=== PATIENT | female | born 1965 | race Caucasian/White ===

== ENCOUNTER 2022-09-13 15:08 | Emergency (ER) | payer OTHER ==
[2022-09-13 15:18] VITALS: BP 132/71; PULSE 74; RESP 20; TEMP 97.8; BMI 25.7
[2022-09-13] MEDS ORDERED: ALBUTEROL SO4 2.5/IPRATROPIUM 0.5 INH SOL 3 ML VIAL.NEB. NEB ONE ×2 (15:38→15:41)
[2022-09-13] MEDS ORDERED: IBUPROFEN 600 MG TABLET (FP) PO ONE ×2 (15:38→15:42)
[2022-09-13] MEDS ORDERED: LORATADINE 10 MG TABLET PO ONE (15:38)
[2022-09-13] MEDS ORDERED: LORATADINE 10 MG TABLET ONE (15:41)
== END 2022-09-13 16:55 | disposition home or self-care (01) ==
LOC: JERFT 15:08
PROC: 3E0F7GC Introduction of Other Therapeutic Substance into Respiratory Tract, Via Natural or Artificial Opening (ICD-10-PCS; principal; 2022-09-13)
DX: R50.9 Fever, unspecified (principal); R05.9 Cough, unspecified; R09.81 Nasal congestion; J98.01 Acute bronchospasm; T78.40XA Allergy, unspecified, initial encounter; Z20.822 Contact with and (suspected) exposure to COVID-19
CPT/HCPCS: 0241U-QW; 71046-TC-FY; 99284-25

== ENCOUNTER 2023-01-24 15:17 | Emergency (ER) | payer OTHER ==
[2023-01-24 15:26] VITALS: BP 133/61; PULSE 73; RESP 18; TEMP 97.7; BMI 27.8
[2023-01-24] MEDS ORDERED: ACETAMINOPHEN 1000 MG/100 ML BAG IVPB ONE (16:49)
[2023-01-24] MEDS ORDERED: SODIUM CHLORIDE 0.9% 500 ML INFUS.BAG IV ONE (16:50)
[2023-01-24] MEDS ORDERED: ALBUTEROL SO4 0.083% IH SOL 2.5 MG/3 ML VIAL.NEB. NEB ONE ×2 (17:17→17:38)
[2023-01-24] MEDS ORDERED: ACETAMINOPHEN INJECTION 100 ML IVPB ONE (17:17)
[2023-01-24] MEDS: ALBUTEROL SO4 0.083% IH SOL 2.5 MG/3 ML VIAL.NEB. NEB SCH ×3 (17:28→18:45)
[2023-01-24 17:52] LABS: BASO % 1.6 % (0-2.0); EOS % 0.9 % (0-4.5); HEMATOCRIT 39.4 % (32.4-45.2); HEMOGLOBIN 13.6 GM/dL (10.7-15.3); LYMPH % 49.3 % (8-40); MCH 30.6 pg (25.7-33.7); MCHC 34.6 g/dl (32.0-36.0); MEAN CELL VOLUME 88.4 fl (80-96); MEAN PLT VOLUME 7.2 fl (7.5-11.1); MONO % 10.6 % (3.8-10.2); NEUT % 37.6 % (42.8-82.8); PLATELET COUNT 299 10^3/uL (134-434); RBC 4.46 M/mm3 (3.60-5.2); RDW 13.2 % (11.6-15.6); WHITE BLOOD COUNT 4.8 K/mm3 (4.0-10.0)
[2023-01-24 17:56] LABS: CALCIUM 8.5 mg/dL (8.5-10.1)
[2023-01-24 17:57] LABS: ALBUMIN 3.6 g/dl (3.4-5.0); BLOOD UREA NITROGEN 11.5 mg/dL (7-18)
[2023-01-24 18:00] LABS: CREATININE 0.6 mg/dL (0.55-1.3)
[2023-01-24 18:01] LABS: BILIRUBIN,TOTAL 0.2 mg/dL (0.2-1); TOT PROT 7.3 g/dl (6.4-8.2)
[2023-01-24 19:10] LABS: THROAT:GRP A STREP NOT DETECTED (NOTDETECTED)
== END 2023-01-24 20:30 | disposition home or self-care (01) ==
LOC: JERFT 15:17 → JER 15:17 → JERFT 20:30
PROC: 3E033NZ Introduction of Analgesics, Hypnotics, Sedatives into Peripheral Vein, Percutaneous Approach (ICD-10-PCS; principal; 2023-01-24)
PROC: 3E0F7GC Introduction of Other Therapeutic Substance into Respiratory Tract, Via Natural or Artificial Opening (ICD-10-PCS; 2023-01-24)
DX: R05.9 Cough, unspecified (principal); R06.2 Wheezing; J02.9 Acute pharyngitis, unspecified; R11.0 Nausea; R19.7 Diarrhea, unspecified; U07.1 COVID-19; M94.0 Chondrocostal junction syndrome [Tietze]; J20.8 Acute bronchitis due to other specified organisms
CPT/HCPCS: 0241U-QW; 36415; 71046-TC-FY; 80053; 84484; 85025; 87651; 93005; 93010; 99285-25

== ENCOUNTER 2023-03-04 16:31 | Emergency (ER) | payer BC, OTHER ==
[2023-03-04 16:39] VITALS: BP 129/57; PULSE 79; RESP 18; TEMP 98.3; BMI 27.6
[2023-03-04] MEDS ORDERED: SODIUM CHLORIDE 0.9% 500 ML INFUS.BAG IV ONE (16:46)
[2023-03-04] MEDS ORDERED: ACETAMINOPHEN 1000 MG/100 ML BAG IVPB ONE (16:46)
[2023-03-04] MEDS ORDERED: ACETAMINOPHEN INJECTION 100 ML IVPB ONE (17:04)
[2023-03-04 17:37] LABS: HEMATOCRIT 40.2 % (32.4-45.2); MCH 30.9 pg (25.7-33.7); MCHC 34.8 g/dl (32.0-36.0); MEAN CELL VOLUME 88.7 fl (80-96); MEAN PLT VOLUME 7.6 fl (7.5-11.1); PLATELET COUNT 309 10^3/uL (134-434); RBC 4.53 M/mm3 (3.60-5.2); RDW 13.4 % (11.6-15.6); WHITE BLOOD COUNT 7.5 K/mm3 (4.0-10.0)
[2023-03-04 18:08] LABS: POTASSIUM 4.1 mmol/L (3.5-5.1)
[2023-03-04 18:09] LABS: CALCIUM 8.9 mg/dL (8.5-10.1)
[2023-03-04 18:10] LABS: ALBUMIN 3.7 g/dl (3.4-5.0); BLOOD UREA NITROGEN 17.1 mg/dL (7-18); MAGNESIUM 1.9 mg/dL (1.8-2.4)
[2023-03-04 18:14] LABS: CREATININE 0.6 mg/dL (0.55-1.3)
[2023-03-04 18:15] LABS: BILIRUBIN,TOTAL 0.3 mg/dL (0.2-1); TOT PROT 7.3 g/dl (6.4-8.2)
[2023-03-04 18:58] LABS: EPI CELLS 4 /uL (0-25.1); HYALINE CASTS 0 /uL (0-3.1); URINE APPEARANCE CLEAR; URINE BACTERIA 51 /uL (0-1359); URINE BILIRUBIN NEGATIVE (NEGATIVE); URINE COLOR YELLOW; URINE GLUCOSE (UA) NEGATIVE (NEGATIVE); URINE KETONE NEGATIVE (NEGATIVE); URINE LEUK ESTERASE NEGATIVE (NEGATIVE); URINE NITRITE NEGATIVE (NEGATIVE); URINE PROTEIN NEGATIVE (NEGATIVE); URINE RBC 19 /uL (0-23.9); URINE UROBILINOGEN 0.2 mg/dL (0.2-1.0); URINE WBC 11 /uL (0-25.8)
[2023-03-04] MEDS ORDERED: KETOROLAC TROMETHAMINE 30 MG/1 ML VIAL IVPUSH ONE (19:15)
[2023-03-04] MEDS ORDERED: KETOROLAC TROMETHAMINE 30 MG/1 ML VIAL ONE (19:57)
== END 2023-03-04 20:25 | disposition home or self-care (01) ==
LOC: JER 16:31
PROC: 3E033NZ Introduction of Analgesics, Hypnotics, Sedatives into Peripheral Vein, Percutaneous Approach (ICD-10-PCS; principal; 2023-03-04)
PROC: 3E0333Z Introduction of Anti-inflammatory into Peripheral Vein, Percutaneous Approach (ICD-10-PCS; 2023-03-04)
DX: R10.9 Unspecified abdominal pain (principal); R30.0 Dysuria; R11.10 Vomiting, unspecified
CPT/HCPCS: 36415; 74176-TC; 80053; 81003; 83735; 85027; 87086; 99284-25

== ENCOUNTER 2023-12-31 19:22 | Emergency (ER) | payer BC ==
[2023-12-31 19:34] VITALS: BP 128/79; PULSE 72; RESP 18; TEMP 98.6; BMI 28.3
[2023-12-31 20:57] LABS: HEMATOCRIT 38.3 % (32.4-45.2); MCH 30.5 pg (25.7-33.7); MEAN CELL VOLUME 89.8 fl (80-96); PLATELET COUNT 289 10^3/uL (134-434); RBC 4.27 M/mm3 (3.60-5.2); RDW 13.5 % (11.6-15.6); WHITE BLOOD COUNT 6.1 K/mm3 (4.0-10.0)
[2023-12-31 21:09] LABS: POTASSIUM 3.9 mmol/L (3.5-5.1)
[2023-12-31 21:12] LABS: CALCIUM 8.8 mg/dL (8.5-10.1)
[2023-12-31] MEDS ORDERED: ACETAMINOPHEN INJECTION 100 ML ONE (21:12)
[2023-12-31] MEDS ORDERED: METHOCARBAMOL 500 MG TABLET ONE (21:12)
[2023-12-31 21:13] LABS: ALBUMIN 3.6 g/dl (3.4-5.0); BLOOD UREA NITROGEN 11.4 mg/dL (7-18)
[2023-12-31] MEDS ORDERED: ONDANSETRON 4 MG/2 ML VIAL ONE (21:13)
[2023-12-31] MEDS ORDERED: LIDOCAINE 5% TOPICAL PATCH ONE (21:13)
[2023-12-31 21:16] LABS: CREATININE 0.6 mg/dL (0.55-1.3)
[2023-12-31 21:17] LABS: BILIRUBIN,TOTAL 0.3 mg/dL (0.2-1)
[2023-12-31 21:18] LABS: TOT PROT 7.1 g/dl (6.4-8.2)
[2023-12-31] MEDS: LIDOCAINE 5% TOPICAL PATCH TP ONE (21:28)
[2023-12-31] MEDS: ONDANSETRON 4 MG/2 ML VIAL IVPUSH ONE (21:28)
[2023-12-31] MEDS: ACETAMINOPHEN 1000 MG/100 ML BAG IVPB ONE (21:29)
[2023-12-31] MEDS: METHOCARBAMOL 500 MG TABLET PO ONE (21:29)
[2023-12-31] MEDS: SODIUM CHLORIDE 0.9% 500 ML INFUS.BAG IV ONE (21:29)
[2023-12-31 22:04] LABS: HIV INTERPRETATION NEGATIVE (NEGATIVE)
[2024-01-01] MEDS ORDERED: LIDOCAINE PATCH REMOVAL MC ONE (10:00)
== END 2023-12-31 22:11 | disposition home or self-care (01) ==
LOC: JER 19:22
PROC: 3E033NZ Introduction of Analgesics, Hypnotics, Sedatives into Peripheral Vein, Percutaneous Approach (ICD-10-PCS; principal; 2023-12-31)
PROC: 3E033GC Introduction of Other Therapeutic Substance into Peripheral Vein, Percutaneous Approach (ICD-10-PCS; 2023-12-31)
DX: R07.2 Precordial pain (principal); R51.9 Headache, unspecified; R11.0 Nausea; Z20.822 Contact with and (suspected) exposure to COVID-19
CPT/HCPCS: 0241U-QW; 36415; 71046-TC-FY; 80053; 84484; 85027; 85651; 86803; 87389; 93005; 93010; 99285-25; J0131

== ENCOUNTER 2024-04-22 09:44 | Emergency (ER) | payer BC ==
[2024-04-22 09:54] VITALS: BP 144/68; PULSE 80; RESP 18; TEMP 99.3; BMI 27.1
== END 2024-04-22 10:05 | disposition home or self-care (01) ==
LOC: JER 09:44 → JERFT 09:44
DX: R09.81 Nasal congestion (principal); R05.9 Cough, unspecified; M79.10 Myalgia, unspecified site; R68.83 Chills (without fever); J06.9 Acute upper respiratory infection, unspecified; Z20.822 Contact with and (suspected) exposure to COVID-19
CPT/HCPCS: 0241U-QW; 99283-25

== ENCOUNTER 2024-11-17 09:03 | Emergency (ER) | payer BC ==
[2024-11-17 09:18] VITALS: BP 133/53; PULSE 75; RESP 20; TEMP 97.5; BMI 26.9
== END 2024-11-17 10:45 | disposition home or self-care (01) ==
LOC: JERFT 09:03
DX: M20.011 Mallet finger of right finger(s) (principal); W23.2XXA Caught, crushed, jammed or pinched between a moving and stationary object, initial encounter; Y92.009 Unspecified place in unspecified non-institutional (private) residence as the place of occurrence of the external cause
CPT/HCPCS: 73140-TC-RT-FY; 99283-25